=== PATIENT | female | born 1995 | race African-American/Black ===

== ENCOUNTER 2020-03-28 13:47 | Outpatient (CLI) | payer OTHER, SELFPAY ==
--- NOTE | ~2020-03-28 | US_ITS ---
EXAMINATION: US OB <= 14 weeks fetus DATE: 03/28/2020 14:24 INDICATION: Routine care. Uncertain dates. TECHNIQUE: Real-time transabdominal pelvic ultrasound was performed. COMPARISON: None. FINDINGS: The uterus measures 10.9 x 9.8 x 9.2 cm. There is an intrauterine gestational sac. The crown ru mp length measures 5.3 cm, which correlates with an estimated gestational age of 12 weeks and 0 day(s ) (+/-) 1 week(s) and 1 day(s). heart motion is identified measuring 157 beats per minute (bpm) by M-mode Doppler. The ovaries are not visualized. There is no free fluid in the pelvis. IMPRESSION: 1. Living intrauterine gestation with estimated date of delivery of 10/10/2020. Reviewed, dictated and finalized at location B. TAL GRINDER
== END 2020-03-28 13:48 | disposition home or self-care (01) ==
PROVIDERS: Visit Provider Obstetrics & Gynecology
DX: Z34.91 Encounter for supervision of normal pregnancy, unspecified, first trimester (principal); Z3A.00 Weeks of gestation of pregnancy not specified
CPT/HCPCS: 76801

== ENCOUNTER 2020-05-01 14:37 | Outpatient (CLI) | payer OTHER, SELFPAY ==
--- NOTE | ~2020-05-01 | US_ITS ---
US OB follow up DATE: 05/01/2020 15:17 INDICATION: Follow-up for anatomy, growth TECHNIQUE: Real-time imaging and Doppler analysis COMPARISON: 03/28/2020 obstetrical ultrasound FINDINGS: Live garza intrauterine gestation, fetus in longitudinal lie, vertex presentation. Feta l heart rate of 142 bpm. Posterior placenta. Subjectively normal amount of amniotic fluid. Biparietal diameter 3.39 cm; 16 weeks 3 days Head circumference 12.83 cm; 16 weeks 4 days Abdominal circumference 11.45 cm; 17 weeks 2 days Femur length 2.35 cm; 17 weeks Composite age by Hadlock formula is 16 weeks 6 days +/- 1 week 1 day; HONEY 10/10/2020, consistent with HONEY by LMP. Estimated weight is 180.5 +/- 20 7 g. Estimated weight-GP: 58.5% Head circumference/abdominal circumference 1.12, within normal range of 1.07-1.30 IMPRESSION: Composite age by Hadlock formula is 16 weeks 6 days +/- 1 week 1 day; HONEY 10/10/2020, consi stent with 10/10/2020 HONEY by LMP. Reviewed, dictated and finalized at Location A. Reviewed, dictated and finalized at location A. ELLER INSPECTOR IMPRESSION: Composite age by Hadlock formula is 16 weeks 6 days +/- 1 week 1 da y; HONEY 10/10/2020, consistent with 10/10/2020 HONEY by LMP.
== END 2020-05-01 14:38 | disposition home or self-care (01) ==
LOC: ANHIMG 14:44
PROVIDERS: PCP Obstetrics & Gynecology; Visit Provider Obstetrics & Gynecology
DX: Z34.92 Encounter for supervision of normal pregnancy, unspecified, second trimester (principal); Z3A.16 16 weeks gestation of pregnancy
CPT/HCPCS: 76816

== ENCOUNTER 2020-07-12 15:10 | Outpatient (CLI) | payer OTHER, SELFPAY ==
--- NOTE | ~2020-07-12 | US_ITS ---
EXAMINATION: US OB follow up DATE: 07/12/2020 15:44 INDICATION: Encounter for supervision of normal TECHNIQUE: Real-time ultrasound of the pelvis was performed. The interpreting radiologist was not pre sent for the study. COMPARISON: 05/29/2020 FINDINGS: There is a single living fetus in breech presentation. The placenta is posterior. heart rate i s 145 beats per minute (bpm). The amniotic fluid index is 14.4 cm, which is normal (5th%-95%: 9.5-22 .6 cm at 27 weeks estimated gestational age). The following biometric data were obtained: BPD: 6.5 cm -> 26 weeks 2 days Head circumference: 24.8 cm -> 26 weeks 6 days Abdominal circumference: 22.7 cm -> 27 weeks 1 days Femur length: 5.1 cm -> 27 weeks 3 days These measurements are concordant. Head circumference to abdominal circumference ratio: 1.09 (normal range 1.05-1.22). Estimated weight: 1029 g (+/-) 154 g or 2 lbs. 4 oz. (+/-) 5 oz. IMPRESSION: 1. Single living fetus in breech presentation with heart rate of 145 bpm. 2. Normal amniotic fluid index of 14.4 cm. 3. Estimated weight is 37th percentile by Hadlock criteria when 10/10/2020 is used as the estimat ed date of delivery (HONEY). Please correlate with clinical information or earlier ultrasounds for most accurate HONEY. Reviewed, dictated and finalized at location A. IMPRESSION: 1. Single living fetus in breech presentation with heart rate of 145 bpm. 2. Normal amniotic fluid index of 14.4 cm. 3. Estimated weight is 37th percentile by Hadlock criteria when 10/10/2020 is used as the estimated date of delivery (HONEY). Please correlate with clinical information or earlier ultrasounds for most accurate HONEY.
== END 2020-07-12 15:11 | disposition home or self-care (01) ==
LOC: ANHIMG 15:13
PROVIDERS: Visit Provider Obstetrics & Gynecology
DX: Z34.91 Encounter for supervision of normal pregnancy, unspecified, first trimester (principal); Z3A.00 Weeks of gestation of pregnancy not specified
CPT/HCPCS: 76816

== ENCOUNTER 2020-10-03 02:53 | Inpatient (IN) | payer OTHER, SELFPAY ==
[2020-10-03] VITALS (40 sets, daily range): BP systolic 100–143; BP diastolic 47–88; PULSE 66–157; RESP 16–18; TEMP 36.3–36.8; O2SAT 96–100; BMI 28.6
--- OUTSIDE RECORDS SUMMARY | 2020-10-03 03:14 | XMS_ITS ---
:1995 Author Care Team Providers Name Role Phone Ashutosh Macias Primary Care Provider Unavailable Allergies Code Code System Name Reaction Severity Status Onset NKDA ? Notes: Some allergies listed in Documents: #[id number], #[id number] could not be added to this patient's chart. Please re view these documents and add these allergies to the patient's chart manually as alex cadet Medications Name Status Start Date Stop Date ? ? carbamazepine 200 mg tablet Active ? Not available TK 1 T PO BID doxycycline hyclate 100 mg capsule Completed ? 04/17/2019 TK ONE C PO Q 12 H metoclopramide 10 mg tablet Active ? Not available TK 1 T PO Q 6 TO 8 H metronidazole 500 mg tablet Active ? Not available TK 1 T PO BID nitrofurantoin Completed ? 04/17/2019 monohydrate/macrocrystals 100 mg capsule ondansetron 4 mg disintegrating tablet Active ? Not available DIS 1 T ON THE TONGUE Q 8 H PRN NV promethazine 25 mg tablet Active ? Not av ailable TK 1 T PO Q 4 TO 6 H pyridoxine (vitamin B6) 25 mg tablet Active ? Not available Take 1 tablet 3 times a day by oral route. sertraline 25 mg tablet Active ? Not avai lable TK 1 T PO QD Unisom (doxylamine) 25 mg tablet Active ? Not available Take 12.5 mg every day by oral route at dinner. Problems None recorded. Procedures Date Name
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
--- OUTSIDE RECORDS SUMMARY | 2020-10-03 03:14 | XMS_ITS ---
:1995 Author Care Team Providers Name Role Phone ADRIANE WOODRUFF MD Natural Foods Clerk [phone] Allergies Code Code System Name Reaction Severity Status Onset NKDA ? Notes: Some allergies listed in Documents: #[id number], #[id number], #[id number] could not be added to this patient's sergey rt. Please review these documents and add these allergies to the patient's chart m anually as needed. Medications Name Status Start Date Stop Date ? ? acyclovir 800 mg tablet Active ? Not avai lable TAKE 1 TABLET BY MOUTH EVERY DAY aripiprazole 2 mg tablet Completed ? 021 Aspirin Low Dose 81 mg tablet,delayed release Completed ? 07/04/2020 Take 1 tablet twice a day by oral route. azithromycin 500 mg tablet Active ? Not a vailable Take 2 tablets as single dose Calcium 600 with Vitamin D3 600 mg (1,500 mg)-400 unit capsule A ctive ? Not available Take 1 capsule every day by oral route. Calcium with Vitamin D 600 mg (1,500 mg)-400 unit tablet Active ? Not available Take 1 tablet twice a day by oral route. carbamazepine 200 mg tablet Completed ? 06/07 TK 1 T PO BID cyanocobalamin (vit B-12) 1,000 mcg/mL injection solution Active ? Not available Inject 1 mL every month by subcutaneous route. ferrous sulfate 325 mg (65 mg iron) tablet Active ? Not available Take 1 tablet every day by oral route. folic acid 1 mg tablet Active ? Not avail able Take 1 tablet 4 times a day by oral route as directed.
--- OUTSIDE RECORDS SUMMARY | 2020-10-03 03:14 | XMS_ITS | Encounter Summary ---
:1995 Author Care Team Providers Name Role Phone Roddy Carrera MD Boom Operator [phone] Reason for Visit ob routine visit Assessment and Plan 1. Routine care ? urinalysis, dipstick ? counting your baby's kicks : care instructions ? kick counts ? US, obstetric, 3rd trimest er 2. screening ? glucose tolerance test, po st-50G, 1-hour - In addition to our office, please fax results to [facility] [phone] 3. Heterozygous methylenetetrahy drofolate reductase mutation ? cyanocobalamin (vit B-12) 1,000 mcg/mL injection solution 4. RhD negative ? antibody screen, serum or plasma ? abo group + rh type, blood 5. Group B Streptococcus carrier 6. Bipolar disorder ? bipolar disorder: care ins tructions ? learning about mood disord ers 7. Genital herpes simplex ? genital herpes: care instr uctions ? acyclovir 800 mg tablet Discussion Note encouraged COVID-19 vaccine. Plan of Care Reminders Provider Appointments None ? ? recorded. Lab Urinalysis, In-Of fice Order Dipstick 07/04/2020 ?
--- NOTE | 2020-10-03 03:22 | LDADM ---
This patient, Linnea North, was admitted to Labor/Delivery/Recovery 106 on 10/03/20 at 02:53. Plans for labor, pain management and were discussed with patient. Patient/family oriented to hospital policies and general routines including ID bracelet, bed and alarms, visiting hours, pain management, procedures, bathroom and other care routines, personal items, smoking policy, room service/diet and guest tray routines, security routines, and visiting hours. Patient/Family are encouraged to report perceived risks to care and to ask questions if they do not understand what they are told or what they should do. See OBIX for further documentation.
[2020-10-03 03:32] LABS: Basophils Percent Auto 0.1 % (0.2-1.2); Eosinophils Absolute Auto 0.1 K/mm3 (0-0.3); Eosinophils Percent Auto 0.8 % (0-4.4); Hematocrit 30.9 % (37.0-47.0); Hemoglobin 9.9 g/dL (12.0-15.0); Immature Granulocyte Absolute 0.04 K/mm3 (0.00-0.031); Immature Granulocyte Percent A 0.5 % (0-0.5); Lymphocytes Percent Auto 27.7 % (18.3-44.2); Mean Corpuscular Hemoglobin 29.3 pg (26-34); Mean Corpuscular Volume 91.4 fl (80-100); Mean Platelet Volume 11.4 fl (7.4-10.4); Monocytes Absolute Auto 0.8 K/mm3 (0.1-0.6); Monocytes Percent Auto 10.7 % (2.6-8.5); Neutrophils Absolute Auto 4.6 K/mm3 (1.3-6.7); Neutrophils Percent Auto 60.2 % (45.5-73.1); Platelet Count Result 212 k/mm3 (150-375); Red Blood Count 3.38 M/mm3 (4.2-5.4); Red Cell Distribution Width 13.4 % (11.5-14.5); White Blood Count 7.6 K/mm3 (4.5-10.0)
[2020-10-03] MEDS: AMPICILLIN 2 GM/NS 100 ML 2 GM/100 ML BAG IVPB (03:32)
[2020-10-03] MEDS: LACTATED RINGERS 1,000 ML 125 ML IV CONT ×2 (03:33→04:16)
--- NOTE | 2020-10-03 03:56 | WPDANESEPP ---
Anes - Eval Pre Procedure Procedure: Labor epidural Date/Time: 10/03/20 03:56 Surgeon: nick Preop Diagnosis: Abd pain with contractions Pre Op Diagnosis: Contractions/Labor Patient Data Age: 24 Gender: F Height: 1.68 m Weight: 80.5 kg Last Vital Signs Pulse 87 10/03/20 03:46 BP 139/84 10/03/20 03:46 Allergies Allergy/AdvReac Type Severity Reaction Status Date / Time No Known Allergies Allergy Verified 10/03/20 03:32 Laboratory Tests 10/03/20 10/03/20 10/03/20 03:26 03:26 03:26 WBC 7.6 K/mm3 K/mm3 (4.5-10.0) RBC 3.38 M/mm3 L M/mm3 (4.2-5.4) Hgb 9.9 g/dL L g/dL (12.0-15.0) Hct 30.9 % L % (37.0-47.0) MCV 91.4 fl fl (80-100) MCH 29.3 pg pg (26-34) MCHC 32.0 g/dl g/dl (32-36) RDW 13.4 % % (11.5-14.5) Plt Count 212 k/mm3 k/mm3 (150-375) MPV 11.4 fl H fl (7.4-10.4) Immature Gran % (Auto) 0.5 % % (0-0.5) Neut % (Auto) 60.2 % % (45.5-73.1) Lymph % (Auto) 27.7 % % (18.3-44.2) [place] % (Auto) 10.7 % H % (2.6-8.5) Eos % (Auto) 0.8 % % (0-4.4) Baso % (Auto) 0.1 % L % (0.2-1.2) Lymph # (Auto) 2.10 K/mm3 K/mm3 (0.9-3.2) [place] # (Auto) 0.8 K/mm3 H K/mm3 (0.1-0.6) Eos # (Auto) 0.1 K/mm3 K/mm3 (0-0.3) Baso # (Auto) 0.0 K/mm3 K/mm3 (0.0-0.1) Abs Immat Gran (auto) 0.04 K/mm3 H K/mm3 (0.00-0.031) Absolute Neuts (auto) 4.6 K/mm3 K/mm3 (1.3-6.7) Absolute Nucleated RBC 0.0 K/mm3 K/mm3 (0.0-0.012) Nucleated RBC % 0.0 % % (0.0-0.2) RPR Pending HIV 1&2 Ab/P24 Ag 4thGn Pending Patient hx anesthesia problems: none Family hx anesthesia problems: none PMFSH Past Medical History Medical History Overweight (BMI 25.0-29.9) and not yet delivered Social History Social History Smoking status: Never smoker Spiritual care concerns: No Exam Day of Procedure 10/03/20 03:56 Patient weight: overweight Airway: Mallampati scale class II Neurological: alert and oriented
[2020-10-03 04:23] LABS: HIV 1/2 Ab P24 Ag Result Negative (Negative)
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
[2020-10-03] MEDS: OXYTOCIN 30 UNITS/NS 500 ML 30 UNITS/500 ML BAG 999 UNITS IV CONT (05:15)
--- NOTE | 2020-10-03 05:26 | PM.OBPRVD ---
OB - Delivery Note Procedure Delivery date: 10/03/20 Procedure: Normal spontaneous vertex vaginal delivery of viable male infant and placenta Repair of superficial vulvar laceration Intrapartal events: None Induction method: none Delivery augmentation: rupture of membranes Delivery monitor: external FHT and external uterine Route of delivery: Episiotomy description: None Laceration Description: Superficial Delivery repair: chromic Specimen: Yes ( placenta, cord blood, cord blood gases) Quantitative Blood Loss (ml): 250 Anesthesia type: Epidural Disposition: floor Complications: none Narrative: complete cervical dilation amniotomy performed clear fluid obtained normal spontaneous vertex vaginal delivery a viable male over an intact perineum normal delivery anterior shoulder delivered and placed on the maternal abdomen. Baby had spontaneous respirations and cry normal transition with stimulation nose and throat bulb suction cord was clamped and cut and the infant was handed to the nursery nurse in attendance scores 8 9 weight 7 lb 12 oz length 20 in long baby taken to the nursery in stable condition. Cord gas obtained cord blood obtained the placenta was then delivered intact with 3 vessel cord spontaneously and the uterus contracted well Pitocin given intravenously. Superficial viable laceration anterior fourchette was repaired with 3 0 chromic interrupted fashion with excellent hemostasis. The cervix and rectum were checked no sponges were left in the vagina of the anal sphincters intact. Counts correct Garza removed prior to delivery VTE prevention not applicable patient ambulatory delivery in LDR room 1. 0 6 Baby Date of : 10/03/20 Time of : 05:12 Weeks of gestation at delivery: 39 gender: Male Weight (pounds): 7 Weight (ounces): 12 presentation: vertex position: Left Occiput Anterior Placenta delivery description: Spontaneous and Normal Configuration cord vessel description: 3 Vessels score one minute: 8 score five minutes: 9 Narrative: normal transition to nursery
[2020-10-03] MEDS: OXYTOCIN 30 UNITS/NS 500 ML 30 UNITS/500 ML BAG 125 UNITS IV CONT (05:47)
[2020-10-03 09:06] LABS: Rapid Plasma Reagin Non-Reactive (NonReactive)
[2020-10-03] MEDS: MULTIVIT/MIN/PREN/FOL AC/IRON TABLET 1 TAB PO (09:40)
[2020-10-03] MEDS: DOCUSATE SODIUM 100 MG CAPSULE PO (09:40)
[2020-10-03] MEDS: IBUPROFEN 600 MG TABLET PO ×3 (09:40→22:22)
[2020-10-03] MEDS: ACYCLOVIR 400 MG TABLET 800 MG PO (09:41)
--- NOTE | 2020-10-03 14:50 | PC.NURSE ---
Consult with pt., mother reports infant has been sleepy and needing max assist with latching. Reviewed infant feeding cues, frequencies, duration of feedings, feeding elimination flow sheet, and signs of adequate intake. Demonstrated stimulation techniques to wake for feeding. Assisted with infant to breast. Reviewed positioning/alignment in cross cradle, holding breast in ?U? hold and guided asymmetrical latch on. Discussed rational for each. Several attempts before infant able to latch correctly. nursed eagerly, with steady draws and frequent swallowing noted. Suggested mother stimulate while feeding to increase stimulate, increase intake and to assist with maintaining deep latch. Reviewed signs of a correct latch, effective nursing and suck swallow ratio. Infant would slip to shallow latch, mother reports tenderness. Demonstrated how to adjust latch more deeply while feeding. Mother reports she can feel change in latch and has no tenderness. Nipple care reviewed of lanolin after feedings, warm compresses as needed. Mother does not continue to hold breast during feeding she will switch to cradle once infant is latched. Advised to hold breast until is in a good rhythmic pattern or hold during entire feeding to assist with maintaining deep latch. FOB at bedside stimulating infant to keep awake. Instructed mother to call out for RN assistance if she is unable to latch for feeding or she has discomfort with nursing.
[2020-10-04 00:54] VITALS: BP 95/56; PULSE 73; RESP 16; TEMP 36.4; O2SAT 98
[2020-10-04 03:50] VITALS: BP 102/62; PULSE 73; RESP 18; TEMP 36.6; O2SAT 97
[2020-10-04 05:18] LABS: Hemoglobin 8.9 g/dL (12.0-15.0)
--- NOTE | 2020-10-04 08:12 | WPDANLDPN2 ---
Anes-Prog Note L&D Date/Time: 10/04/20 08:12 Comfortable throughout: labor and delivery Neuraxial method: epidural Epidural/Spinal procedure site: clean & non-tender Neuro status: Neuro function grossly intact. Cardiovascular status: normal Respiratory status: normal Airway patency: baseline Mental status: baseline Post-Op hydration status: normal Vital Signs: Last Vital Signs Temp 36.6 C 10/04/20 03:50 Pulse 73 10/04/20 03:50 Resp 18 10/04/20 03:50 BP 102/62 10/04/20 03:50 Pulse Ox 97 10/04/20 03:50 Pain score (VAS): 0 Post-procedural complaints: none Patient feedback: Patient satisfied with anesthetic care.
[2020-10-04 08:30] VITALS: BP 97/59; PULSE 70; RESP 16; TEMP 36.6; O2SAT 100
[2020-10-04] MEDS: POLYSACCHARIDE IRON COMPLEX 150 MG CAPSULE PO ×2 (10:29→16:53)
[2020-10-04] MEDS: IBUPROFEN 600 MG TABLET PO ×2 (10:29→16:53)
[2020-10-04] MEDS: DOCUSATE SODIUM 100 MG CAPSULE PO ×2 (10:29→16:53)
[2020-10-04] MEDS: ACYCLOVIR 400 MG TABLET 800 MG PO (10:29)
[2020-10-04] MEDS: MULTIVIT/MIN/PREN/FOL AC/IRON TABLET 1 TAB PO (10:29)
[2020-10-04] MEDS: RHO(D) IMMUNE GLOBULIN 300 MCG/2 ML SYRINGE IM (13:57)
--- NOTE | 2020-10-04 15:18 | P.PNOB_ITS ---
OB - PN: Subj Subjective Date/time seen: 10/04/20 15:18 Patient comments: no complaints baby status: doing well [place] feeding status: exclusively breast feeding OB - PN: Obj Data Labs CBC & Chem 7: 10/04/20 05:09 Labs: Laboratory Results - last 24 hr 10/04/20 10/04/20 05:09 05:09 Hgb 8.9 L Hct 28.0 L Blood Type O Negative Antibody Screen Negative Screen Negative Baby's Blood Type O pos Baby's KERRY Negative Doses of RhIg Required 1 OB - PN A/P Plan day: 1 Plan: routine care and discharge home Time Spent With Patient Time: Total time spent is greater than 50% in coordination of care (as documented) at patient's floor/unit and/or counseling patient: Time with patient: less than 15 minutes Review of Systems Review of Systems: All systems reviewed & are unremarkable except as noted in HPI and below Exam Const: General: cooperative, healthy appearing, comfortable, no acute distress, well developed, alert, awake and Physically active Nutritional Appearance: average body habitus Orientation/consciousness: patient oriented x3 Limitations: no limitations HENMT: Head: normal to inspection Eyes: General: appearance normal, both eyes and all related structures Neck: Neck: normal visual inspection Chest: Chest palpation & inspection: normal inspection of the chest Resp: Effort & Inspection: normal respiratory effort Auscultation: clear to auscultation bilaterally Cardio: Rate: regular rate Rhythm: regular rhythm GI: Inspection: normal to inspection GI Palp: Yes Soft to palpation Auscultation: normal bowel sounds : External Female Exam: normal external appearance Bimanual exam- vagina & uterus: non-tender Back/Spine/Pelvis: Back: no CVA tenderness Skin: General skin exam: normal color Neuro: General: patient oriented x3, gait normal, tone normal and moves all extremities Extrem: General: normal to inspection and full ROM Psych: Appearance: grossly normal Mental Status: mental status grossly normal Speech and movement: Normal speech and movement present Affect: normal affect Attitude: cooperative Thought process: Normal thought process present Thought content: Yes Normal thought content present Insight: Good insight present (Psych) Judgement: Good judgement present (Psych)
--- NOTE | 2020-10-04 15:58 | PCCCNOTE ---
Care Coordination Consult: Met with pt. and IVONBoone Agustin today. Pt. lives at home alone with her two older children. FOB lives nearby. Pt. has family support. Does not have all baby equipment at this time but is working with a friend to get a crib and carseat. CC did provide pt. a gift basket including onesies, blankets, and other items to assist at discharge. Pt. plans to use [facility] services and Link and is aware of how to add baby to services at discharge. Pt. reported limited transportation assistance during her and had to relocate her family. Reports she did complete some appointments. Plans to follow up at the [facility] to see Dr. Carrera. Additional resources also provided to pt. Pt. denies any further needs.
[2020-10-04 20:00] VITALS: BP 115/69; PULSE 65; RESP 16; TEMP 36.6; O2SAT 99
[2020-10-05 08:00] VITALS: BP 111/65; PULSE 73; RESP 18; TEMP 36.9
[2020-10-05] MEDS: LANOLIN (LANSINOH) 7.5 GM CREAM 1 APPLIC TOPICAL (08:27)
[2020-10-05] MEDS: MULTIVIT/MIN/PREN/FOL AC/IRON TABLET 1 TAB PO (08:27)
[2020-10-05] MEDS: DOCUSATE SODIUM 100 MG CAPSULE PO (08:27)
[2020-10-05] MEDS: IBUPROFEN 600 MG TABLET PO ×2 (08:27→14:38)
[2020-10-05] MEDS: POLYSACCHARIDE IRON COMPLEX 150 MG CAPSULE PO (08:27)
[2020-10-05] MEDS: ACYCLOVIR 400 MG TABLET 800 MG PO (08:28)
--- NOTE | 2020-10-05 09:02 | PM.OBDSVD ---
DS: Admitting Diagnosis Admitting Diagnosis (1) Term : Code(s): Z34.90 - Encounter for supervision of normal , unspecified, unspecified trimester Status: Acute (2) Spontaneous onset of labor: Status: Acute (3) GBS (group B Streptococcus carrier), +RV culture, currently : Code(s): O99.820 - Streptococcus B carrier state complicating Status: Acute (4) HSV (herpes simplex virus) anogenital infection: Code(s): A60.9 - Anogenital herpesviral infection, unspecified Status: Acute (5) Bipolar disorder: Code(s): F31.9 - Bipolar disorder, unspecified Status: Acute (6) Rh negative state in antepartum period: Code(s): O26.899 - Other specified related conditions, unspecified trimester; Z67.91 - Unspecified blood type, Rh negative Status: Acute (7) 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: Code(s): Z15.89 - Genetic susceptibility to other disease Status: Acute DS: Discharge Diagnosis Discharge Diagnosis (1) Term delivered: Code(s): O80 - Encounter for full-term uncomplicated delivery Status: Acute (2) Spontaneous onset of labor: Status: Acute (3) Heterozygous MTHFR mutation [id number]: Code(s): Z15.89 - Genetic susceptibility to other disease Status: Acute (4) GBS (group B Streptococcus carrier), +RV culture, currently : Code(s): O99.820 - Streptococcus B carrier state complicating Status: Acute (5) HSV (herpes simplex virus) anogenital infection: Code(s): A60.9 - Anogenital herpesviral infection, unspecified Status: Acute (6) Bipolar disorder: Code(s): F31.9 - Bipolar disorder, unspecified Status: Acute (7) Rh negative state in antepartum period: Code(s): O26.899 - Other specified related conditions, unspecified trimester; Z67.91 - Unspecified blood type, Rh negative Status: Acute OB - DS: Summary Hospital Course Time spent discussing smoking cessation with patient: 3 to 10 minutes OB Procedures : Ultrasound OB Procedures Intrapartum: Spontaneous Vag Delivery and GBS prophylaxis OB Procedures: : None Peripartum Data Delivery Method: Natural Vaginal Laceration Description: Superficial Episiotomy description: None Procedures: normal spontaneous vertex vaginal delivery a viable male infant and placenta Superficial vulvar laceration repair complications: none Nichols 1: Gender: Male Disposition of : home Status at Discharge Cognitive/behavioral status at discharge: normal Functional status at discharge: independent ambulation Overall status at discharge: patient is back to baseline Time Spent with Patient Time attestation: Total time spent providing and/or coordinating discharge services: Time spent: Less than 30 minutes Exam Const: General: cooperative, healthy appearing, comfortable, no acute distress, well developed, alert, awake and Physically active Nutritional Appearance: average body habitus Orientation/consciousness: patient oriented x3 Limitations: no limitations HENMT: Head: normal to inspection Eyes: General: appearance normal, both eyes and all related structures Neck: Neck: normal visual inspection and full ROM Chest: Chest palpation & inspection: normal inspection of the chest Resp: Effort & Inspection: normal respiratory effort Auscultation: clear to auscultation bilaterally Cardio: Rate: regular rate Rhythm: regular rhythm GI: Inspection: normal to inspection GI Palp: Yes Soft to palpation Auscultation: normal bowel sounds : External Female Exam: normal external appearance Bimanual exam- vagina & uterus: non-tender Back/Spine/Pelvis: Back: no CVA tenderness Skin: General skin exam: normal color Neuro: General: patient oriented x3, gait normal, tone normal, moves all extremities and Normal light touch an
--- NOTE | 2020-10-05 13:05 | PC.NURSE ---
Patient was given the opportunity to view the discharge video Mother & Baby Care, The First Two Weeks and to ask questions. Patient declined viewing the video and has been given the mother/baby guide for home reference.
--- NOTE | 2020-10-05 13:06 | PC.NURSE ---
Self care and infant care discharge instructions given including follow up visit date and time. Mother verbalized understanding. No questions or concerns verbalized. Very pleasant and cooperative. FOB at side.
[2020-10-05] MEDS: WITCH HAZEL 40 PADS 1 PAD TOPICAL (14:39)
[2020-10-07 11:52] VITALS: BP 107/70; PULSE 94; RESP 18; TEMP 37.2; O2SAT 100
== END 2020-10-05 16:35 | disposition home or self-care (01) | DRG 560 ==
LOC: ANHLDR 05:37 → ANHOB2 08:13
PROVIDERS: Admitting Provider Obstetrics & Gynecology; Visit Provider Obstetrics & Gynecology
DX: O62.3 Precipitate labor (principal); Z37.0 Single live birth; Z3A.39 39 weeks gestation of pregnancy; O99.824 Streptococcus B carrier state complicating childbirth; O36.0930 Maternal care for other rhesus isoimmunization, third trimester, not applicable or unspecified; O99.284 Endocrine, nutritional and metabolic diseases complicating childbirth; E72.12 Methylenetetrahydrofolate reductase deficiency; F31.9 Bipolar disorder, unspecified; O99.344 Other mental disorders complicating childbirth; O98.32 Other infections with a predominantly sexual mode of transmission complicating childbirth; A60.9 Anogenital herpesviral infection, unspecified; O71.4 Obstetric high vaginal laceration alone
CPT/HCPCS: 36415; 85014; 85018; 85025; 85461; 86592; 86703; 86850; 86900; 86901; 88307; 90384; A9270; G0432; J0290; J2590; J2790; J2795; J7120